=== PATIENT | male | born 1975 | race Caucasian/White ===

== ENCOUNTER 2018-10-24 23:29 | Emergency (ER) | payer MEDICAID ==
[~2018-10-24] VITALS: Ht 188 cm; Wt 90.9 kg
[2018-10-24] MEDS ORDERED: HYDR-4061 PO (23:36)
[2018-10-24] MEDS ORDERED: NORT25 PO (23:36)
[2018-10-24] MEDS ORDERED: GABA-531 PO (23:36)
[2018-10-25 01:10] VITALS: BP 135/78
== END 2018-10-25 01:13 | disposition home or self-care (01) ==
LOC: EMS 23:34
DX: F41.9 Anxiety disorder, unspecified (principal); G47.62 Sleep related leg cramps; F17.210 Nicotine dependence, cigarettes, uncomplicated; F12.90 Cannabis use, unspecified, uncomplicated
CPT/HCPCS: 93005